=== PATIENT | male | born 1945 | race Caucasian/White ===

== ENCOUNTER → 2018-03-14 | Outpatient (CLI) | payer OTHER ==
--- NOTE | 2018-03-17 13:10 | RADRPT ---
EXAM DATE/TIME: 03/14/2018 15:53 CONSULT: 72-year-old male with history of chronic renal insufficiency and 3.3 cm left renal mass kindly referr ed for consideration of possible ablation. PET/CT and MRI examinations were reviewed. This lesion dem onstrates no activity and on recent MRI examination of 02/27/2018 demonstrates characteristics consist ent with a solid mass although the exam is not contrast enhanced. This mass is entirely within the ce ntral renal sinus and is therefore not amenable to ablation particularly given size of greater than 3 cm. Biopsy would also be considered very high risk although technically feasible. Rufus Young MD on March 17, 2018 at 11:53 Board Certified Radiologist. This report was verified electronically.
== END ==
LOC: HRAD 14:01
PROVIDERS: ATTEND Urology
DX: N28.89 Other specified disorders of kidney and ureter (principal)